=== PATIENT | male | born 1940 | race Caucasian/White ===

== ENCOUNTER 2016-12-14 11:30 | Inpatient (IN) | payer MEDICARE, BC ==
[~2016-12-14] VITALS: Ht 172.7 cm; Wt 95.1 kg
[2016-12-27] MEDS ORDERED: DILT360C12 PO (12:06)
[2016-12-27] MEDS ORDERED: WARF-23 PO (12:06)
[2016-12-27] MEDS ORDERED: TOPR100T PO (12:06)
[2016-12-27] MEDS ORDERED: IBUP200T2 PO (12:07)
--- NOTE | 2016-12-27 17:42 | MH ---
cc: ARSALAN GORDON M.D. DATE OF ADMISSION 12/28/2016 ADMISSION DIAGNOSIS Osteoarthritis of the left hip. HISTORY OF THE PRESENT ILLNESS This patient is a 76-year-old white male status post previous right hip replacement arthroplasty by the undersigned and doing well. The patient is having increased pain in the region of his left hip. He has had extensive conservative care including medications, injection of cortisone, altered activities, physical therapy. The patient now presents for elective hip replacement arthroplasty. PAST MEDICAL HISTORY, SOCIAL HISTORY AND FAMILY HISTORY See attached notes. REVIEW OF SYSTEMS See attached notes. PHYSICAL EXAMINATION VITAL SIGNS: 5 feet 8 inches, weight 196 pounds. BMI 29.8. Blood pressure 144/81. HEENT: Normocephalic, atraumatic. Pupils equal, round, reactive to light and accommodation. Extraocular motions intact. NECK: Supple. CHEST: Clear. HEART: Regular rate and rhythm. ABDOMEN: Soft, nontender, normoactive bowel sounds. MUSCULOSKELETAL: Thoracolumbar spine restricted motion, well-healed incision over the right hip. None over the left hip. Marked restricted range of motion, significant pain with range of motion of the left hip. Internal rotation is 0. External rotation 10. Flexion is 80. There is also a well-healed incision over the right knee and left knee. NEUROLOGICAL: Examination is within normal limits. IMPRESSION Osteoarthritis of the left hip. PLAN Left total hip replacement arthroplasty. CONSENT The risks of surgery including infection, bleeding, loss of motion, continued pain, need for further surgery, neurologic and vascular injury. The patient understands these risks and wishes to press on with surgery as outlined above. MD EVELINA Collazo/OSWALDO /5:23 PM /5:29 PM
[2016-12-28] MEDS ORDERED: SODIUM CHLORID 0.9% 500 ML IV SCH (08:00)
[2016-12-28] MEDS ORDERED: GENTAMICIN SULFATE 80 MG/2 ML VIAL ONE (08:21)
[2016-12-28] MEDS ORDERED: ceFAZolin 2 GM PREMIX 50 ML IV SCH (08:30)
[2016-12-28] MEDS ORDERED: METOPROLOL TARTRATE 25 MG TAB PO PRN (08:30)
[2016-12-28] MEDS ORDERED: VANCOMYCIN 1000 MG/NS 250 ML (for <70 kg) IV SCH ×2 (08:30)
[2016-12-28] MEDS ORDERED: EXPAREL PERI-ARTICULAR INJECTION (TOTAL VOL. 60 ML) P-ARTICULR SCH ×2 (08:30)
[2016-12-28] MEDS ORDERED: INSULIN HUMAN REGULAR 1,000 UNITS/10 ML VIAL SQ PRN (08:30)
[2016-12-28] MEDS: LACTATED RINGER'S 1000 ML IV SCH (08:30)
[2016-12-28 08:42] VITALS: BP 120/67; PULSE 50; RESP 18; TEMP 97.6; O2SAT 96
[2016-12-28 09:18] LABS: INTERNATIONAL NORMALIZED RATIO 1.1 RATIO; PROTHROMBIN TIME - PATIENT 11.9 SEC (9.8-11.6)
[2016-12-28] MEDS ORDERED: MIDAZOLAM HCL 2 MG/2 ML VIAL ONE (10:05)
[2016-12-28] MEDS: SODIUM CHLORIDE 0.9% IV SCH (10:50)
[2016-12-28] MEDS: TRANEXAMIC ACID IV SCH (10:50)
[2016-12-28] MEDS ORDERED: BISACODYL 10 MG SUPP PR PRN (12:15)
[2016-12-28] MEDS ORDERED: ALUMINUM/MAGNESIUM/SIMETH 30 ML CUP PO PRN (12:15)
[2016-12-28] MEDS ORDERED: MORPHINE SULFATE 30 MG/30 ML PCA IV SCH (12:15)
[2016-12-28] MEDS ORDERED: ACETAMINOPHEN/HYDROcodone 325 MG/7.5 MG TAB PO PRN (12:15)
[2016-12-28] MEDS ORDERED: Post-op Orders (for Pharmacy) MISC XX ONE (12:15)
[2016-12-28] MEDS ORDERED: MAGNESIUM HYDROXIDE SUSP 30 ML CUP PO PRN (12:15)
[2016-12-28] MEDS ORDERED: MORPHINE SULFATE 8 MG/ML INJ IM PRN (12:15)
[2016-12-28] MEDS ORDERED: ONDANSETRON HCL 4 MG/2 ML VIAL IVP PRN (12:15)
[2016-12-28] MEDS ORDERED: SODIUM CHLORIDE 0.9% FLUSH 5 ML FLUSH IVF PRN (12:15)
[2016-12-28] MEDS ORDERED: TEMAZEPAM 15 MG CAP PO PRN (12:15)
[2016-12-28] MEDS ORDERED: NALOXONE HCL 0.4 MG/ML AMP IV PRN (12:15)
--- NOTE | 2016-12-28 12:20 | PD.OP ---
cc: Drew Farrell MD Operative Report Date of Surgery: Dec 28, 2016 Preoperative Diagnosis: Osteoarthritis left hip, severe Postoperative Diagnosis: Same Procedure: Left total hip replacement arthroplasty, posterior exposure Anesthesia: Gen. Surgeon: Drew Farrell Reception(s): GENI Spann Operation and Findings: EBL: 300 cc INDICATION:'s patient is a 75-year-old male with severe arthritis and loss of motion of the left hip. He's had a previous right hip replacement surgery by the undersigned years ago and has done well. He's having progressive loss of range of motion and loss of function. Despite extensive conservative care including injections, anti-inflammatory medications, altered activity, the patient is now felt to be a candidate for surgical treatment. At this time, he is no longer able to take NSAID's because he is on Coumadin NOTE: Deon Spann PA-C was present for the entire surgical procedure as my sampler first. In my medical opinion her skill and care was necessary for the proper management of this patient. COMPONENTS: COMPANY: [employer] CUP: [place], 56 mm, 100 series STEM: Size 3, high offset, Morrow HEAD: 36 mm, 1.5 neck length, 11/03 taper PROCEDURE: This patient was brought to the operating room and anesthetized in the supine position and positioned on the routine table in the clean air suite. The patient was then rolled to a left side up lateral position and held with a Biomet hip positioner. The hip and leg was scrubbed with alcohol followed by Hibiclens followed by chloro prep and draped sterilely. A timeout was done and antibiotics were given within a routine time window. A 4 inch incision was made starting along the posterior one third of the greater trochanter. The iliotibial band was opened in line with the incision. The Charnley retractors were positioned. The posterior capsule and external rotators were taken down together in a sleeve. The sciatic nerve was palpated to be free of any obstruction or compression and posterior to the hip joint without any evidence of traction from the retractor. The neck was exposed. Deep retractors allowed good visualization. The neck was osteotomized at the right location and the head and neck was taken to the back table. The acetabulum was inspected. Deep retractors were positioned. The acetabulum was deepened down to the floor and started with a proper size reamer and reaming up to 55 mm. This was trialed with the same size trial. Overall fit was satisfactory. The acetabulum was reamed further with a 56 mm reamer. The final cup was placed in approximately 40 of abduction and 30 of forward flexion. The final liner was positioned. Retractors were positioned allowing good visualization of the proximal femur. A box osteotome was utilized followed by progressive broaching for the Morrow stem. This was reamed and broached and eventually advanced to a size 3 stem. A trial reduction showed satisfactory stability. Offset was satisfactory. Leg length was reestablished. At 90 of flexion it was stable to 60 of internal rotation. The hip could not be subluxed anteriorly. The final stem was inserted in approximately 20 of anteversion. The final head was impacted. The hip was reduced and stability, offset and leg length was as previously noted. The posterior capsule and external rotators were repaired through bone with interrupted #2 Tycron sutures. The piriformis muscle was repaired with the same. The iliotibial band with interrupted #1 Vicryl sutures. Subcutaneous tissue was approximated with 2-0 Vicryl suture and skin with running intradermal 3-0 Vicryl followed by Steri-Strips and benzoin. A sterile dressing was applied.. The sponge count needle counts and instrument counts were all correct. The patient was awakened and taken to the recovery room in satisfactory condition FINDINGS: There was severe osteoarthritis of the left hip. Some circumferential osteophytes were removed. The final solution was very stable. No complication was noted Drew Farrell MD Dec 28, 2016 12:20
[2016-12-28] MEDS ORDERED: HYDR-3580 PO (12:21)
[2016-12-28] MEDS ORDERED: DO NOT ADM ANY ANTICOAGULANT DRUGS XX PRN (13:00)
[2016-12-28] MEDS ORDERED: GLYCOPYRROLATE 0.2 MG/ML VIAL ONE (13:14)
[2016-12-28] MEDS: LACTATED RINGER'S 1000 ML INJ 1,000 ML IV SCH ×2 (13:22→23:01)
--- NOTE | 2016-12-28 13:57 | RADRPT ---
EXAM DATE/TIME: 12/28/2016 12:35 [facility] COMPARISON: No previous studies available for comparison. INDICATIONS : Post op left hip surgery. MEDICAL HISTORY : None. SURGICAL HISTORY : None. ENCOUNTER: Initial ACUITY: 1 day PAIN SCORE: Non-responsive. LOCATION: Left hip FINDINGS: A single AP view of the left hip was obtained and demonstrates the patient is status post arthroplast y. The acetabular and femoral components are intact and in normal alignment. There is adjacent soft t issue swelling. CONCLUSION: That is post left hip arthroplasty. Remington Elias MD on December 28, 2016 at 13:54 Board Certified Radiologist. This report was verified electronically.
[2016-12-28] MEDS ORDERED: SODIUM CHLORIDE 0.9% IV SCH (14:00)
[2016-12-28] MEDS ORDERED: TRANEXAMIC ACID IV SCH (14:00)
[2016-12-28] MEDS ORDERED: PROPOFOL 200 MG/20 ML AMP IV ONE (14:33)
[2016-12-28] MEDS ORDERED: ePHEDrine/NS 25 MG/5 ML SYR IV ONE (14:33)
[2016-12-28] MEDS ORDERED: PHENYLEPH/NS 1000 MCG/10 ML SYR IV ONE (14:33)
[2016-12-28] MEDS ORDERED: LACTATED RINGER'S 1000 ML INJ 1,000 ML IV ONE (14:33)
[2016-12-28] MEDS ORDERED: *morphine SULFATE 8 MG/ML PERIprocedure ONLY ONE ×3 (15:07→15:29)
[2016-12-28] MEDS ORDERED: WARFARIN SOD 7.5 MG TAB PO ONE (16:00)
[2016-12-28 20:16] VITALS: BP 121/74; PULSE 66; RESP 18; TEMP 96.5; O2SAT 97
[2016-12-28] MEDS: SODIUM CHLORIDE 0.9% FLUSH 5 ML FLUSH IVF SCH (21:00)
[2016-12-28] MEDS: PCA - TOTAL MG MORPHINE DELIVERED PER SHIFT SCH (22:00)
[2016-12-29] VITALS (7 sets, daily range): BP systolic 98–145; BP diastolic 53–80; PULSE 80–98; RESP 16–20; TEMP 97.8–99.1; O2SAT 92–98
[2016-12-29] MEDS: PCA - TOTAL MG MORPHINE DELIVERED PER SHIFT SCH (05:42)
[2016-12-29] MEDS ORDERED: MISC-163 (07:44)
--- NOTE | 2016-12-29 07:44 | HHI.FF ---
Face to Face Verification Diagnosis: (1) Left hip pain (2) Osteoarthritis of left hip Physical Therapy Gait training, Safety evaluation, Transfer training, bed to chair Hip: Total hip, Protocol: Left, Posterior hip precautions, Progress to weight bearing Left LE Weight Bearing: WB as tolerated Additional Instructions PT 5 days/wk for 2 weeks. WBAT LLE. Posterior KOFI precautions. Gait training. Nursing RN Days per Week: 2 x Week(s): 1 Dressing Changes: Do not change dressing Additional Instructions Vitals assessment, dressing assessment - do not change dressing unless saturated. I have seen patient Willard Audrey Florian Jr on 12/29/16. My clinical findings support the need for the requested home health care services because: Limited ability to care for self High risk of falls I certify that my clinical findings support that this patient is homebound because: Post-op weakness Unsteady gait/balance Rubia Villar Dec 29, 2016 07:44
[2016-12-29] MEDS ORDERED: WALKER WHEELS/F1 MIS (07:45)
--- NOTE | 2016-12-29 07:47 | PD.ORT.PN ---
Subjective Subjective Remarks Moderate left hip pain. Pain meds helping. Moderate nausea. Thigh aching, no radiating leg pain. No other complaints. No CP, abd pain or SOB. Objective Vitals Vital Signs Date Time Temp Pulse Resp B/P Pulse Ox O2 Delivery O2 Flow Rate FiO2 12/29/16 05:42 18 12/29/16 04:37 98.3 92 16 145/75 96 12/29/16 00:26 98.5 80 18 139/80 98 12/28/16 22:00 18 12/28/16 21:52 Nasal Cannula 2.00 12/28/16 20:16 96.5 66 18 121/74 97 12/28/16 19:00 97.5 62 14 130/70 97 Nasal Cannula 2 12/28/16 18:00 60 14 126/69 96 Nasal Cannula 2 12/28/16 17:00 76 14 138/81 98 Nasal Cannula 2 12/28/16 16:00 97.7 55 14 102/69 97 Nasal Cannula 2 12/28/16 15:00 63 14 137/79 99 Nasal Cannula 2 12/28/16 14:30 97.0 60 14 142/73 99 Nasal Cannula 2 12/28/16 14:15 54 14 122/72 99 Nasal Cannula 2 12/28/16 14:00 58 14 135/39 98 Nasal Cannula 2 12/28/16 13:45 49 14 114/67 97 Nasal Cannula 2 12/28/16 13:30 96.8 44 14 109/60 98 Nasal Cannula 2 12/28/16 13:22 14 12/28/16 13:15 40 14 111/70 99 Nasal Cannula 2 12/28/16 13:00 41 12 119/63 97 Nasal Cannula 2 12/28/16 12:55 Nasal Cannula 2 12/28/16 12:45 45 12 115/56 99 Simple Mask 8 12/28/16 12:32 96.3 44 12 103/57 98 Simple Mask 8 12/28/16 08:42 97.6 50 18 120/67 96 I/O 12/28/16 12/28/16 12/28/16 12/29/16 12/29/16 12/29/16 07:00 15:00 23:00 07:00 15:00 23:00 Intake Total 2000 ml 1065 ml 459 ml Output Total 2000 ml 1275 ml Balance 0 ml -210 ml 459 ml Intake Oral 480 ml IV Total 585 ml 459 ml Other 2000 ml Output Urine Total 1700 ml 1275 ml Estimated Blood Loss 300 ml Other Results Laboratory Tests Test 12/28/16 08:45 Prothrombin Time 11.9 SEC (9.8-11.6) Prothromb Time International 1.1 RATIO Ratio Imaging Last 24 hours Impressions Hip X-Ray 12/28/16 1206 Signed Impressions: Service Date/Time: Wednesday, December 28, 2016 12:35 - CONCLUSION: That is post left hip arthroplasty. Remington Elias MD Objective Remarks Laying in bed No acute distress VSS LLE Dressing c/d/i, no drainage, mild swelling, no erythema thigh and calf both supple, neg homans +motor at, +sens, +nvi Assessment & Plan Ortho Post Op Day #: 1 Problem List: Assessment and Plan pod#1 s/p L KOFI, posterior D/C PROMOTIONS COORDINATOR at 1300 - change to po pain meds. Xarelto 10mg qd. Encouraged IS PT - WBAT LLE. Posterior KOFI precautions. Hold dressing changes unless saturated. D/C planning, prefers home w [facility] [place]. DME written. Rubia Villar Dec 29, 2016 07:47
[2016-12-29] MEDS ORDERED: PROMETHAZINE HCL 25 MG TAB PO PRN (08:00)
[2016-12-29] MEDS: SODIUM CHLORIDE 0.9% FLUSH 5 ML FLUSH IVF SCH ×2 (08:08→21:00)
[2016-12-29] MEDS: DILTIAZEM-CD 180 MG CAP ER PO SCH (08:08)
[2016-12-29] MEDS: METOPROLOL SUCCINATE 50 MG EXTENDED RELEASE TAB PO SCH (08:08)
[2016-12-29] MEDS: LACTATED RINGER'S 1000 ML IV SCH (08:11)
[2016-12-29] MEDS: ACETAMINOPHEN/HYDROcodone 325 MG/7.5 MG TAB PO PRN ×2 (08:15→15:53)
[2016-12-29 08:19] LABS: HEMATOCRIT 34.6 % (39.0-51.0)
[2016-12-29 08:21] LABS: REVIEW FLAG FINAL
[2016-12-29 08:30] LABS: INTERNATIONAL NORMALIZED RATIO 1.1 RATIO; PROTHROMBIN TIME - PATIENT 11.9 SEC (9.8-11.6)
[2016-12-29] MEDS: POVIDONE IODINE 7.5% SCRUB 118 ML BOTTLE TOP SCH (08:30)
[2016-12-29] MEDS: SODIUM CHLORIDE 0.9% IV SCH (09:00)
[2016-12-29] MEDS: TRANEXAMIC ACID IV SCH (09:00)
[2016-12-29] MEDS ORDERED: WARFARIN SOD 5 MG TAB PO SCH (12:00)
[2016-12-29] MEDS: RIVAROXABAN 10 MG TAB PO SCH (12:03)
[2016-12-29] MEDS: LACTATED RINGER'S 1000 ML INJ 1,000 ML IV SCH (13:06)
[2016-12-29] MEDS: WARFARIN SOD 5 MG TAB PO SCH (15:52)
[2016-12-29] MEDS: DOCUSATE SODIUM 100 MG CAP PO SCH (21:40)
[2016-12-30] VITALS: BP 122/70; PULSE 93; RESP 20; TEMP 99.9; O2SAT 92
[2016-12-30] MEDS: LACTATED RINGER'S 1000 ML INJ 1,000 ML IV SCH ×3 (01:36→20:37)
[2016-12-30] MEDS: ACETAMINOPHEN/HYDROcodone 325 MG/7.5 MG TAB PO PRN ×3 (03:01→13:53)
[2016-12-30 04:00] VITALS: BP 142/81; PULSE 95; RESP 20; TEMP 99.4; O2SAT 94
[2016-12-30 07:03] LABS: INTERNATIONAL NORMALIZED RATIO 1.2 RATIO; PROTHROMBIN TIME - PATIENT 13.4 SEC (9.8-11.6)
[2016-12-30] MEDS: LACTATED RINGER'S 1000 ML IV SCH (08:00)
[2016-12-30 08:26] VITALS: BP 117/61; PULSE 69; RESP 16; TEMP 98.1; O2SAT 93
[2016-12-30] MEDS: POVIDONE IODINE 7.5% SCRUB 118 ML BOTTLE TOP SCH (08:30)
[2016-12-30] MEDS: SODIUM CHLORIDE 0.9% FLUSH 5 ML FLUSH IVF SCH ×2 (09:00→20:37)
[2016-12-30] MEDS: METOPROLOL SUCCINATE 50 MG EXTENDED RELEASE TAB PO SCH (09:15)
[2016-12-30] MEDS: DOCUSATE SODIUM 100 MG CAP PO SCH ×2 (09:15→20:37)
[2016-12-30] MEDS: DILTIAZEM-CD 180 MG CAP ER PO SCH (09:15)
--- NOTE | 2016-12-30 09:24 | HHI.DCPOC ---
Discharge Care Plan Diagnosis: (1) Left hip pain (2) Osteoarthritis of left hip Your Health Problems Are: Incision/Drains Goals to Promote Your Health * To prevent worsening of your condition and complications * To maintain your health at the optimal level Directions to Meet Your Goals Take your medications as prescribed Follow your dietary instruction Follow activity as directed Keep your appointments as scheduled Take your immunizations and boosters as scheduled If your symptoms worsen call your PCP, if no PCP go to Urgent Care Center or Emergency Room Smoking is Dangerous to Your Health. Avoid second hand smoke Call the 24-hour hour crisis hotline for domestic abuse at Rubia Villar Dec 30, 2016 09:24
--- NOTE | 2016-12-30 09:27 | HHI.DS ---
Discharge Summary Admission Date Dec 28, 2016 at 07:45 Discharge Date: Dec 31, 2016 Admitting Diagnosis see below Diagnosis: (1) Left hip pain Diagnosis: Principal (2) Osteoarthritis of left hip Diagnosis: Principal (3) Acute urinary retention Diagnosis: Secondary Procedures Left total hip arthroplasty, posterior approach Brief History This is a 76 year old male patient with a history of bilateral hip pain. He sought out medical treatment and imaging studies were performed. He was found to have moderate to severe bilateral hip osteoarthritis. Conservative measures were pursued for a period of time but he continued to decline. He had right hip replacement and did very well. He attempted further conservative care for over a year for his left hip but again he continued to decline. Surgical treatment was recommended and he elected to move forward. CBC/BMP: 12/29/16 0752 Significant Findings Laboratory Tests Test 12/28/16 12/29/16 12/30/16 08:45 07:52 06:07 Prothrombin Time 11.9 SEC 11.9 SEC 13.4 SEC (9.8-11.6) (9.8-11.6) (9.8-11.6) Hemoglobin 12.7 GM/DL (13.0-17.0) Hematocrit 34.6 % (39.0-51.0) PE at Discharge Laying in bed No acute distress VSS LLE Dressing c/d/i, no drainage, mild swelling, no erythema thigh and calf both supple, neg homans +motor at, +sens, +nvi Hospital Course Surgical treatment was performed on the day of admission without complication. He recovered well in PACU and was transferred to the orthopaedic floor. Pain was controlled with IV and oral medications. DVT prophylaxis was initiated pod# 1 utilizing coumadin and bridged with xarelto. He was compliant with physical therapy and all precautions. He could not urinate so he was straight cath'd day 1 and eventually nelson cath'd day 2. Urology was consulted and he was placed on flomax. After 3 days he was found to be stable and discharged home with home health care with the nelson catheter with instruction to continue therapy, pursue a high fiber diet for the next 72 hours, and to follow up with urology outpatient. Pt Condition on Discharge: Stable Discharge Disposition: Disch w/ Home Health Serv Discharge Instructions Diet Instructions: As Tolerated, No Restrictions, High Fiber Diet Activities You Can Perform: Weight Bearing as Dim[place] Activities to Avoid: Strenuous Activity Additional Activity Instruc.: KOFI precautions, posterior New Medications: 3-in-1 Bedside Toilet (3-in-1 Bedside Toilet) 1 Mis Mis 1 EA .ROUTE DIRECTED #1 EA Walker with Front Wheels (Walker with Front Wheels) 1 Mis Mis 1 EA .ROUTE DIRECTED #1 Ref 0 EA Hydrocodone-Acetaminophen (Hydrocodone-Acetaminophen) 7.5-325 mg Tab 1 TAB PO Q4H PRN PAIN LESS THAN 5 ON SCALE #50 TAB Continued Medications: Diltiazem CD 24 HR (Diltiazem CD 24 HR) 360 Mg Capcr 360 MG PO DAILY irregular heartbeat #30 Ref 0 CAP Metoprolol Succinate ER 24 HR (Toprol XL) 100 Mg Tab 100 MG PO DAILY Blood Pressure Management #30 Ref 0 TAB Discontinued Medications: Ibuprofen (Ibuprofen) 200 Mg Tab 200 MG PO Q6H PRN pain Ref 0 TAB Warfarin (Warfarin) 5 Mg Tab 5 MG PO DAILY Blood Clot Prevention #30 Ref 0 TAB Rubia Villar Dec 30, 2016 09:27
--- NOTE | 2016-12-30 10:01 | PD.ORT.PN ---
Subjective Subjective Remarks Moderate left hip pain but 'better today'. Unable to urinate yesterday, had to have straight cath. Nausea better. No new radiating leg pain. No other complaints. No CP, abd pain or SOB. Objective Vitals Vital Signs Date Time Temp Pulse Resp B/P Pulse Ox O2 Delivery O2 Flow Rate FiO2 12/30/16 04:00 99.4 95 20 142/81 94 12/30/16 00:00 99.9 93 20 122/70 92 12/29/16 20:55 98.4 98 20 98/67 94 12/29/16 18:37 21 12/29/16 16:03 98.0 83 16 126/64 93 12/29/16 12:00 97.8 95 16 106/53 94 I/O 12/29/16 12/29/16 12/29/16 12/30/16 12/30/16 12/30/16 07:00 15:00 23:00 07:00 15:00 23:00 Intake Total 459 ml 702 ml 360 ml 1335 ml Output Total 800 ml 1000 ml Balance 459 ml 702 ml -440 ml 335 ml Intake Oral 240 ml 360 ml 380 ml IV Total 459 ml 462 ml 955 ml Output Urine Total 800 ml 1000 ml Bladder Scan Volume Amount 306 ml 816 ml # Bowel Movements 0 Result Diagram: 12/29/16 0752 Other Results Laboratory Tests Test 12/30/16 06:07 Prothrombin Time 13.4 SEC (9.8-11.6) Prothromb Time International 1.2 RATIO Ratio Imaging Last 24 hours Impressions Hip X-Ray 12/28/16 1206 Signed Impressions: Service Date/Time: Wednesday, December 28, 2016 12:35 - CONCLUSION: That is post left hip arthroplasty. Remington Elias MD Procedures Left total hip arthroplasty, posterior approach Objective Remarks Sitting up in chair, working w PT, No acute distress VSS LLE Dressing c/d/i, no new drainage, mild swelling, no erythema thigh and calf both supple, neg homans +motor at, +sens, +nvi Assessment & Plan Ortho Post Op Day #: 2 Problem List: (1) Left hip pain (2) Osteoarthritis of left hip Assessment and Plan pod#2 s/p L KOFI, posterior PO pain meds as needed. Flomax 0.4mg qd to assist w urination. If he has not urinated by 1300 will need a nelson cath. Coumadin sliding scale, Bridge w Xarelto 10mg Encouraged IS PT - WBAT LLE. Posterior KOFI precautions. Hold dressing changes unless saturated. D/C planning, prefers home w [facility] tomorrow pending being able to urinate. DME written. Rubia Villar Dec 30, 2016 10:01
[2016-12-30] MEDS: TAMSULOSIN HCL 0.4 MG CAP PO SCH (10:43)
[2016-12-30] MEDS: RIVAROXABAN 10 MG TAB PO SCH (10:43)
[2016-12-30 11:53] VITALS: BP 117/58; PULSE 64; RESP 17; TEMP 95.2; O2SAT 92
[2016-12-30] MEDS: WARFARIN SOD 5 MG TAB PO SCH (15:39)
[2016-12-30 16:00] VITALS: BP 124/59; PULSE 65; RESP 16; TEMP 97.5; O2SAT 92
[2016-12-30 20:35] VITALS: BP 137/65; PULSE 85; RESP 17; TEMP 98.9; O2SAT 93
[2016-12-31 00:25] VITALS: BP 123/60; PULSE 88; RESP 16; TEMP 99.1; O2SAT 92
[2016-12-31 03:45] VITALS: BP 108/55; PULSE 65; RESP 17; TEMP 96.3; O2SAT 94
[2016-12-31 06:35] LABS: INTERNATIONAL NORMALIZED RATIO 1.5 RATIO; PROTHROMBIN TIME - PATIENT 17.1 SEC (9.8-11.6)
--- NOTE | 2016-12-31 07:58 | PD.ORT.PN ---
Subjective Subjective Remarks Moderate left hip pain but continues to improved. Making progress. Nelson cath placed yesterday evening. No other complaints. No CP, abd pain or SOB. Prefers d/c home with home health care if possible. Objective Vitals Vital Signs Date Time Temp Pulse Resp B/P Pulse Ox O2 Delivery O2 Flow Rate FiO2 12/31/16 03:45 96.3 65 17 108/55 94 12/31/16 01:46 20 12/31/16 00:25 99.1 88 16 123/60 92 12/30/16 21:05 21 12/30/16 20:35 98.9 85 17 137/65 93 12/30/16 16:00 97.5 65 16 124/59 92 12/30/16 11:53 95.2 64 17 117/58 92 12/30/16 08:26 98.1 69 16 117/61 93 I/O 12/30/16 12/30/16 12/30/16 12/31/16 12/31/16 12/31/16 07:00 15:00 23:00 07:00 15:00 23:00 Intake Total 1335 ml 2434 ml 480 ml 905 ml Output Total 1000 ml 50 ml 3365 ml 1475 ml Balance 335 ml 2384 ml -2885 ml -570 ml Intake Oral 380 ml 960 ml 480 ml 240 ml IV Total 955 ml 1474 ml 665 ml Output Urine Total 1000 ml 50 ml 3365 ml 1475 ml Bladder Scan Volume Amount 816 ml 233 ml # Bowel Movements 0 0 Result Diagram: 12/29/16 0752 Other Results Laboratory Tests Test 12/31/16 04:45 Prothrombin Time 17.1 SEC (9.8-11.6) Prothromb Time International 1.5 RATIO Ratio Imaging Last 24 hours Impressions Hip X-Ray 12/28/16 1206 Signed Impressions: Service Date/Time: Wednesday, December 28, 2016 12:35 - CONCLUSION: That is post left hip arthroplasty. Remington Elias MD Procedures Left total hip arthroplasty, posterior approach Objective Remarks Sitting up in bed, No acute distress VSS LLE Dressing c/d/i, no new drainage, mild swelling, no erythema thigh and calf both supple, neg homans +motor at, +sens, +nvi Assessment & Plan Ortho Post Op Day #: 3 Problem List: (1) Left hip pain (2) Osteoarthritis of left hip Assessment and Plan pod#3 s/p L KOFI, posterior Urology consulted. Pt was nelson cath'd yesterday. Flomax 0.4mg qd. PO pain meds as needed. Coumadin sliding scale, Bridge w Xarelto 10mg Encouraged IS PT - WBAT LLE. Posterior KOFI precautions. Hold dressing changes unless saturated. If stable w urology, ok to d/c home w [facility] this afternoon. F/U 2 weeks postop. DME written. Rubia Villar Dec 31, 2016 07:58
[2016-12-31] MEDS ORDERED: WARF-18 PO (08:16)
[2016-12-31 08:20] VITALS: BP 104/55; PULSE 61; RESP 18; TEMP 97.3; O2SAT 95
[2016-12-31] MEDS: SODIUM CHLORIDE 0.9% FLUSH 5 ML FLUSH IVF SCH (09:55)
[2016-12-31] MEDS: DOCUSATE SODIUM 100 MG CAP PO SCH (09:56)
[2016-12-31] MEDS: DILTIAZEM-CD 180 MG CAP ER PO SCH ×2 (09:56→10:02)
[2016-12-31] MEDS: METOPROLOL SUCCINATE 50 MG EXTENDED RELEASE TAB PO SCH ×2 (09:57→10:03)
[2016-12-31] MEDS: TAMSULOSIN HCL 0.4 MG CAP PO SCH (09:57)
[2016-12-31 12:10] VITALS: BP 113/57; PULSE 70; RESP 16; TEMP 97.4; O2SAT 95
[2016-12-31] MEDS: RIVAROXABAN 10 MG TAB PO SCH (12:23)
[2016-12-31] MEDS: LACTATED RINGER'S 1000 ML INJ 1,000 ML IV SCH (15:06)
[2016-12-31 16:10] VITALS: BP 138/61; PULSE 86; RESP 18; TEMP 99.5; O2SAT 94
[2016-12-31] MEDS: WARFARIN SOD 5 MG TAB PO SCH (16:33)
== END 2016-12-31 17:42 | disposition home health service (06) | DRG 470 ==
LOC: HSDI 12-28 07:45 → N06B 12-28 19:41
PROVIDERS: ADMIT Orthopaedic Surgery Orthopaedic Surgery of the Spine; ATTEND Orthopaedic Surgery Orthopaedic Surgery of the Spine
PROC: 0SRB02A Replacement of Left Hip Joint with Metal on Polyethylene Synthetic Substitute, Uncemented, Open Approach (ICD-10-PCS; principal; 2016-12-28 10:11)
PROC: 0T9B70Z Drainage of Bladder with Drainage Device, Via Natural or Artificial Opening (ICD-10-PCS; 2016-12-30)
DX: M16.12 Unilateral primary osteoarthritis, left hip (principal); Z96.641 Presence of right artificial hip joint; I48.91 Unspecified atrial fibrillation; I10 Essential (primary) hypertension; E78.5 Hyperlipidemia, unspecified; R33.9 Retention of urine, unspecified; R11.0 Nausea; Z79.01 Long term (current) use of anticoagulants
CPT/HCPCS: 73501; 85014; 85018; 85610; 86850; 86890; 86900; 86901; 86920; 94150; C1776; C9290; J0690; J1580; J2250; J2270; J2370; J2405; J3370; J7050; J7120